=== PATIENT | male | born 1990 ===

== ENCOUNTER 2018-03-01 02:58 | Emergency (ER) | payer SELFPAY ==
[~2018-03-01] VITALS: Ht 180.3 cm; Wt 99.8 kg
--- NOTE | 2018-03-01 03:05 | NUR ---
CALLED [employer] AND SPOKE WITH [employer] PHYSICAL THERAPIST 89 AND REPORTED INCIDENT TO THEM. CASE #[id number]. DISPATCH WILL SEND PD UNIT TO INTERVIEW PATIENT
--- NOTE | 2018-03-01 03:27 | NUR ---
[employer] at bedside to interview pt.
--- NOTE | 2018-03-01 03:45 | NUR ---
Dr. Nazario at bedside for MSE.
[2018-03-01] MEDS ORDERED: TDAP DIPH,PERTUSS,TET VAC/PF 0.5 ML DISP.SYRIN IM ONE ×2 (04:00→04:12)
--- NOTE | 2018-03-01 04:03 | NUR ---
Pt out of ER for CT.
[2018-03-01] MEDS ORDERED: NEOMY/BACITRA/POLYMYXIN B OINT UD PACKET TP ONE (04:35)
--- NOTE | 2018-03-01 05:22 | NUR ---
Patient eloped from facility. ER physician notified. Pt last seen [id number], said they just wanted to speak with friend outside.
== END 2018-03-01 05:24 | disposition left against medical advice (07) ==
LOC: ER 03:02
DX: S00.01XA Abrasion of scalp, initial encounter (principal); S00.03XA Contusion of scalp, initial encounter; Y00.XXXA Assault by blunt object, initial encounter; Y93.89 Activity, other specified; Y92.89 Other specified places as the place of occurrence of the external cause; Y99.8 Other external cause status
CPT/HCPCS: 70450; 90715; A4663